=== PATIENT | male | born 1975 | race Two or more races ===

== ENCOUNTER 2021-06-20 11:32 | Emergency (ER) | payer BC ==
[~2021-06-20] VITALS: Ht 175.3 cm; Wt 79.4 kg
[2021-06-20] MEDS ORDERED: ALEVE220 M1 PO (11:44)
[2021-06-20] MEDS ORDERED: NORFLEX100MG PO (15:29)
[2021-06-20] MEDS ORDERED: KETO10TA2 PO (15:29)
== END 2021-06-20 15:37 | disposition home or self-care (01) ==
LOC: ER 11:32
DX: R10.32 Left lower quadrant pain (principal)